=== PATIENT | female | born 1980 | race Two or more races ===

== ENCOUNTER 2024-09-15 10:22 | Emergency (ER) | payer SELFPAY ==
[~2024-09-15] VITALS: Ht 162.6 cm; Wt 82.0 kg
[2024-09-15 11:04] VITALS: BP 111/74; PULSE 87; RESP 16; TEMP 98.6; O2SAT 100
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
[2024-09-15 11:23] LABS: Urine Protein, UAD Negative (Negative)
[2024-09-15 11:36] LABS: Cannabinoid Screen, Urine Neg (NEGATIVE)
[2024-09-15 11:37] LABS: Amphetamine Screen, Urine Pos (NEGATIVE); Barbiturate Scree,Urine Neg (NEGATIVE); Benzodiazephine Screen, Urine Neg (NEGATIVE); Cocaine Screen, Urine Neg (NEGATIVE); Opiate Scree,Urine Neg (NEGATIVE); Phencyclidine Screen, Urine Neg (NEGATIVE)
--- NOTE | 2024-09-15 11:52 | DVH ---
CT HEAD WITHOUT CONTRAST INDICATION: [facility] EXAM DATE: 09/15/2024 11:13 AM COMPARISON: None RADIATION DOSE: CTDIvol: 55 mGy, DLP: 1526 mGy*cm PROCEDURE: CT scans of the head were obtained from the vertex to the skull base. Sagittal and coronal reconstructions were provided. All CT scans at this medical facility are performed using dose modulation techniques as appropriate t o a performed exam including the following: Automated exposure control was utilized; adjustment of th e MA and/or KV according to patient size; and use of iterative reconstruction technique. FINDINGS: Left parietal lobe encephalomalacia could be from old infarct. The brain otherwise shows n ormal morphology and hopper-white matter differentiation, without intracranial hemorrhage, extra-axial fluid collection, mass effect or acute large vessel infarct. The ventricles are normal in size. The b paresh cisterns are patent. The skull and visible facial bones are intact. The paranasal sinuses, masto id air cells and middle ear cavities are well-aerated. The soft tissues of the scalp are unremarkable . IMPRESSION: Left parietal lobe encephalomalacia could be from old infarct. No acute intracranial abnormality.
--- NOTE | 2024-09-15 11:58 | DVH ---
CT CERVICAL WITHOUT CONTRAST INDICATION: [facility] EXAM DATE: 09/15/2024 11:13 AM COMPARISON: None RADIATION DOSE: CTDIvol: 55.82 mGy, DLP: 1526.27 mGy*cm PROCEDURE: Utilizing the CT scanner, contiguous axial images were obtained through the cervical spine . Coronal and sagittal reformatted images were then generated. All CT scans at this medical facility are performed using dose modulation techniques as appropriate t o a performed exam including the following: Automated exposure control was utilized; adjustment of th e MA and/or KV according to patient size; and use of iterative reconstruction technique. FINDINGS: Alignment at the craniocervical junction is maintained. The cortical margins are intact. Th e vertebral body heights and cervical alignment are normal. The facet joints show normal alignment wi thout fracture. The intervertebral disc spaces are narrowed and degenerative. The paraspinal soft tis sues appear normal. On axial images: There is multilevel posterior disc osteophyte complex, mild central canal narrowing at C5-6, moderate bilateral neural foramina narrowing at that level. Facet and uncinate spondylosis i s seen. IMPRESSION: No cervical spine fracture or subluxation.
[2024-09-15 12:00] LABS: Hematocrit 38.6 % (36.0-46.0); Hemoglobin 13.1 g/dL (12.2-16.2); Mean Corpuscular Hemoglobin 27.6 pg (28.0-32.0); Mean Corpuscular Volume 81.4 fL (80.0-100.0); Nucleated Red Blood Cells % 0.0 %
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
[2024-09-15 12:16] LABS: Alanine Aminotransferase 18 U/L (7-40); Albumin 4.6 g/dL (3.2-4.8); Alkaline Phosphatase 102 U/L (46-116); Anion Gap 6 (5-15); BUN/Creatinine Ratio 13.4 (10.0-20.0); Blood Urea Nitrogen 9 mg/dL (9-23); Calcium 9.8 mg/dL (8.7-10.4); Carbon Dioxide 27 mmol/L (20-31); Chloride 109 mmol/L (98-107); Glucose 68 mg/dL (74-106); Potassium 3.5 mmol/L (3.5-5.1); Sodium 142 mmol/L (136-145); Total Protein 7.1 g/dL (5.7-8.2)
[2024-09-15 12:17] LABS: Bilirubin, Total 0.2 mg/dL (0.2-1.0)
== END 2024-09-15 14:54 | disposition left against medical advice (07) ==
LOC: ER 10:22 → EDBD 10:22 → ER 14:54
DX: M54.2 Cervicalgia (principal); M79.671 Pain in right foot; M79.672 Pain in left foot; R51.9 Headache, unspecified; R45.851 Suicidal ideations; F20.9 Schizophrenia, unspecified; F31.9 Bipolar disorder, unspecified
CPT/HCPCS: 36415; 70450; 72125; 73630; 80053; 80307; 81001; 85025